=== PATIENT | male | born 1995 | race Caucasian/White ===

== ENCOUNTER 2017-03-14 21:02 | Emergency (ER) | payer OTHER ==
[~2017-03-14] VITALS: Ht 167.6 cm; Wt 117.9 kg
[2017-03-14 21:21] VITALS: BP_SYST 138
[2017-03-14 22:09] VITALS: BP_SYST 126
== END 2017-03-14 22:09 | disposition home or self-care (01) ==
LOC: SED 21:02
DX: N50.89 Other specified disorders of the male genital organs (principal); L29.9 Pruritus, unspecified
CPT/HCPCS: 99282